=== PATIENT | female | born 1985 | race Caucasian/White ===

== ENCOUNTER 2018-07-09 14:32 | Emergency (ER) | payer OTHER ==
[~2018-07-09] VITALS: Ht 167.6 cm; Wt 58.5 kg
[~2018-07-09 14:32] MED LIST: [UNRECOGNIZED DRUG - CODE] PO
[2018-07-09 14:46] VITALS: BP 102/53
--- NOTE | 2018-07-09 14:57 | NUR ---
Patient ambulated to bed 12. RN evaluating patient at bedside.
--- NOTE | 2018-07-09 15:00 | NUR ---
PT. CAME INTO THE ED DUE TO HEAVY VAGINAL BLEEDING TODAY- LMP 04/16/2018 A2 LOWER ABDOMINAL CRAMPING PAIN NO RECENT INJURY. VAGINAL BLEEDING UNCONTROLLED WITH CLOTS. DENIES ANY N/V/D. DENIES ANY DIZZYNESS. ER MD MADE AWARE. WILL CONTINUE TO MONITOR.
--- NOTE | 2018-07-09 15:24 | NUR ---
lab at bedside at this time
[2018-07-09 15:33] LABS: BASOPHILS # (AUTO) 0.1 K/uL (0.00-0.22); BASOPHILS % (AUTO) 0.9 % (0.0-2.0); EOSINOPHILS # (AUTO) 0.2 K/uL (0-0.4); EOSINOPHILS % (AUTO) 1.9 % (0.0-4.0); HEMATOCRIT 31.8 % (36-48); HEMOGLOBIN 10.6 g/dL (12.0-16.0); LYMPHOCYTES # (AUTO) 2.4 K/uL (2.5-16.5); LYMPHOCYTES % (AUTO) 22.6 % (20.5-51.1); MEAN CORPUSCULAR HEMOGLOBIN 29 pg (27-31); MEAN CORPUSCULAR HGB CONC 34 g/dL (33-37); MEAN CORPUSCULAR VOLUME 85.8 fL (80-94); MONOCYTES # (AUTO) 0.8 K/uL (0.8-1.0); MONOCYTES % (AUTO) 7.7 % (1.7-9.3); NEUTROPHILS # (AUTO) 7.2 K/uL (1.8-7.7); NEUTROPHILS % (AUTO) 66.9 % (42.2-75.2); PLATELET COUNT (AUTO) 230 K/uL (140-450); RED BLOOD CELL COUNT(AUTO) 3.71 MIL/uL (4.20-5.40); RED CELL DISTRIBUTION WIDTH 13.8 % (11.6-13.7); WHITE BLOOD COUNT (AUTO) 10.7 K/uL (4.8-10.8)
--- NOTE | 2018-07-09 15:50 | NUR ---
PT. UNABLE TO PROVIDE URINE AT THIS TIME. ER MD VARGHESE MADE AWARE.
--- NOTE | 2018-07-09 15:54 | NUR ---
ultrasound at bedside at this time
[2018-07-09] MEDS ORDERED: NACL 0.9% 1,000 ML IV ONE ×2 (15:55→21:15)
[2018-07-09 16:06] LABS: PROTHROMBIN TIME 10.2 secs (10.8-13.4)
--- NOTE | 2018-07-09 16:21 | NUR ---
Female Ball Rolling Machine Operator BOSSMAN JIMENES accompanied [facility] FOR female patient for Ultrasound.
--- NOTE | 2018-07-09 17:00 | NUR ---
PT. RESTING COMFORTABLY IN BED, AT BEDSIDE. HOB ELEVATED. NO FURTHER COMPLAINTS AT THIS TIME. WILL CONTINUE TO MONITOR.
--- NOTE | 2018-07-09 17:58 | NUR ---
ULTRASOUND REPORT NOT AVAILABLE AT THIS TIME. CALLED TO OBTAIN REPORT. WILL CALL BACK
--- NOTE | 2018-07-09 18:19 | NUR ---
PT CLEANED AND CHANGED AT THIS TIME FOR COMFORT.
--- NOTE | 2018-07-09 18:25 | NUR ---
PT. B/P , ER MD VARGHESE MADE AWARE. ER STATES " GIVE HER SOME JUICE AND TELL HER SHE NEEDS TO EAT. PT. PROVIDED WITH APPLE JUICE. PT. DENIES ANY N/V AT THIS TIME. DOES STATE " I FEEL A LITTLE TIRED".
[2018-07-09] MEDS ORDERED: LACTATED RINGERS 1,000 ML IV ONE (18:50)
--- NOTE | 2018-07-09 18:55 | NUR ---
B/P 82/44 ER MD VARGHESE MADE AWARE. WILL CONTINUE TO MONITOR. NO D/C AT THIS TIME.
--- NOTE | 2018-07-09 19:10 | NUR ---
HOUSE SUP CALLED TO REQUEST SANDWICH FOR PATIENT
--- NOTE | 2018-07-09 19:22 | NUR ---
Pt report given to JALIL COULTER . Transfer of care at this time.
--- NOTE | 2018-07-09 20:00 | NUR ---
Patient discharged with v/s stable. Written and verbal after care instructions given and explained. Patient verbalized understanding. Ambulatory with steady gait. All questions addressed prior to discharge. Advised to follow up with PMD.
--- NOTE | 2018-07-09 20:20 | NUR ---
REPORT GIVEN TO JALIL KEITA TO ASSUME CARE.
--- NOTE | 2018-07-09 20:20 | NUR ---
PT ATTEMPTED TO LEAVE ER AT D/C; PT BECAME LIGHTHEADED AGAIN AND NAUSEOUS. MD BURGESS NOTIFIED. PT PLACED BACK ON [facility]...PT WILL BE ADMITTED FOR OBS.
--- NOTE | 2018-07-09 20:21 | NUR ---
ASSUMED CARE OF PT AT THIS TIME.
[2018-07-09] MEDS ORDERED: MORPHINE SULFATE 4 MG/ML SYR IVP ONE (21:15)
[2018-07-09 22:38] LABS: APPEARANCE,URINE TURBID (CLEAR); BARBITURATE, URINE NEG. ng/ml (NEG <=200); BENZODIAZEPINE, URINE NEG. ng/mL (NEG <=200); BILIRUBIN,URINE NEGATIVE (NEGATIVE); BLOOD, URINE 3+ (NEGATIVE); CANNABINOID, URINE NEG. ng/mL (NEG <=50); COCAINE, URINE NEG. ng/mL (NEG <=300); COLOR,URINE RED (YELLOW); LEUKOCYTE ESTERASE ,URINE 2+ (NEGATIVE); NITRITE, URINE POSITIVE (NEGATIVE); OPIATE, URINE NEG. ng/mL (NEG <=2000); PH,URINE 6.5 (5.0-9.0); PHENCYCLIDINE SCREEN,URINE NEG. ng/mL (NEG <=25); UGLUCOSE 1+ (NEGATIVE)
[2018-07-09 22:39] LABS: RBC,URINE TOO NUMEROUS TO COUN /HPF (0-5)
--- NOTE | 2018-07-09 22:44 | NUR ---
SPOKE WITH MICHAEL AT [facility] FOR REPORT. TRANSPORT ARRIVAL IN 20 MINS.
--- NOTE | 2018-07-09 23:00 | NUR ---
PT RESTING IN BED, LEGS UNCROSSED, HANDS IN RELAXED POSITION. NO FACIAL GRIMMACING NOTED. VSS
--- NOTE | 2018-07-09 23:29 | NUR ---
Patient to be transferred to [facility]. Is being transferred due to HIGHER LEVEL OF CARE. Receiving facility has accepting physician and available space. ER physician has signed transfer form. Patient or responsible constitution party has agreed to transfer and signed form. Patient belongings inventoried and will be sent with patient. Copy of nursing notes, lab reports, EKG, Physicians Orders and X-rays to be sent with patient. Report called to MICHAEL JIMENES at receiving facility. [facility] ambulance service has been called for transfer. ETA is 10 MINS.
--- NOTE | 2018-07-09 23:29 | NUR ---
[facility] HERE TO PICK PT UP FOR TRANSPORT. REPORT GIVEN.
--- NOTE | 2018-07-09 23:31 | NUR ---
PT TAKEN BY [facility] TRANSPORT TO [facility]
[2018-07-09 23:32] VITALS: BP 91/49
== END 2018-07-09 23:31 | disposition short-term general hospital (02) ==
LOC: MED 14:32
DX: O03.4 Incomplete spontaneous abortion without complication (principal); Z79.899 Other long term (current) drug therapy
CPT/HCPCS: 36415; 76817; 80305; 81001; 81025; 84702; 85025; 85610; 86900; 86901; 87086; 96374; 99285; J2270; J7030; Q0092

== ENCOUNTER 2019-12-26 15:23 | Emergency (ER) | payer OTHER ==
[~2019-12-26] VITALS: Ht 160 cm; Wt 50.8 kg
[2019-12-26 15:29] VITALS: BP 127/80
[2019-12-26 16:09] VITALS: BP 121/79
== END 2019-12-26 16:10 | disposition home or self-care (01) ==
LOC: MED 15:23
DX: N12 Tubulo-interstitial nephritis, not specified as acute or chronic (principal); Z98.890 Other specified postprocedural states; Z79.899 Other long term (current) drug therapy; Z88.1 Allergy status to other antibiotic agents
CPT/HCPCS: 81002; 81025; 99283